=== PATIENT | male | born 1945 | race Caucasian/White ===

== ENCOUNTER 2023-02-10 21:22 | Emergency (ER) | payer OTHER, MEDICARE ==
[2023-02-10] MEDS ORDERED: Lidocaine 1% 5 ML VIAL ONE (21:28)
[2023-02-11 00:16] VITALS: BP 131/89; PULSE 98
== END 2023-02-10 22:45 ==
LOC: LL.ED 21:22
DX: S01.412A Laceration without foreign body of left cheek and temporomandibular area, initial encounter (principal); I11.0 Hypertensive heart disease with heart failure; I50.9 Heart failure, unspecified; E78.00 Pure hypercholesterolemia, unspecified; J44.9 Chronic obstructive pulmonary disease, unspecified; K21.9 Gastro-esophageal reflux disease without esophagitis; E11.9 Type 2 diabetes mellitus without complications; Z88.8 Allergy status to other drugs, medicaments and biological substances; Z88.5 Allergy status to narcotic agent
CPT/HCPCS: 12011; 99284; J3490

== ENCOUNTER 2023-05-22 13:30 | Emergency (ER) | payer OTHER, MEDICARE ==
[2023-05-22] MEDS ORDERED: Sodium Chloride 0.9% 10 ML Syringe FLUSH PRN (13:45)
[2023-05-22 13:52] LABS: BASOPHILS ABSOLUTE AUTO 0.01 K/uL (0.00-0.20); BASOPHILS PERCENT AUTO 0.1 % (0.0-2.0); EOSINOPHILS ABSOLUTE AUTO 0.01 K/uL (0.00-0.50); EOSINOPHILS PERCENT AUTO 0.1 % (0.0-5.0); HEMATOCRIT 38.4 % (39.0-49.0); HEMOGLOBIN 11.7 g/dL (13.1-16.8); LYMPHOCYTES PERCENT AUTO 4.1 % (10.0-50.0); MEAN CORPUSCULAR HEMOGLOBIN 24.7 pg (28.2-33.3); MEAN CORPUSCULAR HGB CONC 30.5 g/dL (31.7-36.0); MONOCYTES ABSOLUTE AUTO 0.48 K/uL (0.00-1.00); MONOCYTES PERCENT AUTO 4.9 % (2.0-14.0); NEUTROPHILS ABSOLUTE AUTO 8.92 K/uL (1.40-7.00); NEUTROPHILS PERCENT AUTO 90.8 % (45.0-80.0); PLATELET COUNT,PLT 198 K/uL (150-350); RED BLOOD CELL COUNT 4.74 M/uL (4.33-5.41); RED CELL DISTRIBUTION WIDTH 20.4 % (11.2-14.1); WHITE BLOOD CELL COUNT,WBC 9.8 K/uL (4.0-10.2)
[2023-05-22 14:13] LABS: ALBUMIN 2.9 g/dL (3.4-5.0); ALKALINE PHOSPHATASE 115 IU/L (46-116); ANION GAP 9.8 meq/L (7-15); ASPARTATE AMNIOTRANSFERASE,AST 49 U/L (15-37); BILIRUBIN TOTAL 0.6 mg/dL (0.2-1.0); BLOOD UREA NITROGEN,BUN 21 mg/dL (7-18); CALCIUM 8.9 mg/dL (8.5-10.1); CARBON DIOXIDE,CO2 27.2 mmol/L (21.0-32.0); CHLORIDE,CL 100 mmol/L (98-107); CREATININE 1.23 mg/dL (0.51-1.17); GLUCOSE RANDOM 264 mg/dL (70-99); POTASSIUM,K 4.5 mmol/L (3.5-5.1); PROTEIN TOTAL,TP 6.7 g/dL (6.4-8.2); SODIUM,NA 137 mmol/L (136-145)
[2023-05-22 14:22] LABS: ESTIMATED GFR 61 mL/min (>=60)
[2023-05-22] MEDS ORDERED: Bacitracin/Neomycin/Polymyxin B Oint 0.9 GM U/D Packet TOP ONE (15:10)
[2023-05-22] MEDS ORDERED: Cephalexin 500 MG Cap PO ONE (15:11)
[2023-05-22 15:17] LABS: ALANINE AMINOTRANSFERASE,ALT 46 U/L (12-78)
[2023-05-22] MEDS ORDERED: Acetaminophen 325 MG Tab PO ONE (15:44)
== END 2023-05-22 17:35 ==
LOC: LL.ED 13:30
DX: S01.02XA Laceration with foreign body of scalp, initial encounter (principal); S61.412A Laceration without foreign body of left hand, initial encounter; S61.411A Laceration without foreign body of right hand, initial encounter; T85.698A Other mechanical complication of other specified internal prosthetic devices, implants and grafts, initial encounter; I48.91 Unspecified atrial fibrillation; I25.810 Atherosclerosis of coronary artery bypass graft(s) without angina pectoris; I13.0 Hypertensive heart and chronic kidney disease with heart failure and stage 1 through stage 4 chronic kidney disease, or unspecified chronic kidney disease; E11.22 Type 2 diabetes mellitus with diabetic chronic kidney disease; N18.9 Chronic kidney disease, unspecified; I50.9 Heart failure, unspecified; E78.00 Pure hypercholesterolemia, unspecified; J44.9 Chronic obstructive pulmonary disease, unspecified; K21.9 Gastro-esophageal reflux disease without esophagitis; M06.9 Rheumatoid arthritis, unspecified; E66.9 Obesity, unspecified; Z87.891 Personal history of nicotine dependence; Z79.01 Long term (current) use of anticoagulants; Z79.82 Long term (current) use of aspirin; Z79.899 Other long term (current) drug therapy; Z79.4 Long term (current) use of insulin; Z88.8 Allergy status to other drugs, medicaments and biological substances; Z88.5 Allergy status to narcotic agent; W05.1XXA Fall from non-moving nonmotorized scooter, initial encounter
CPT/HCPCS: 12001; 36415; 70450; 71045; 72020; 72125; 72170; 73120-50; 80053; 85025; 99284; 99285; A9270-GY

== ENCOUNTER 2023-12-11 23:08 | Emergency (ER) | payer MEDICARE, OTHER ==
[2023-12-11] MEDS ORDERED: Furosemide 40 MG/4 ML VIAL IVPUSH ONE (23:26)
[2023-12-11] MEDS ORDERED: Albuterol/Ipratropium 3.0-0.5 MG/3 ML Neb Soln NEB ONE (23:27)
[2023-12-12 00:03] LABS: APPEARANCE,URINE SLIGHTLY CLOUDY; BILIRUBIN,URINE NEGATIVE (NEGATIVE); COLOR,URINE YELLOW; GLUCOSE,URINE NEGATIVE (NEGATIVE); KETONES,URINE NEGATIVE (NEGATIVE); LEUKOCYTE ESTERASE,URINE NEGATIVE (NEGATIVE); NITRITE,URINE NEGATIVE (NEGATIVE); OCCULT BLOOD,URINE MODERATE (NEGATIVE); PROTEIN,URINE NEGATIVE (NEGATIVE); UROBILINOGEN,URINE 0.2 E.U./dL (0.2-1.0)
[2023-12-12 00:11] LABS: BACTERIA,URINE RARE /HPF (NONE TO FEW); EPITHELIAL CELLS,URINE RARE /LPF; HYALINE CASTS,URINE MODERATE; MUCUS,URINE MANY /LPF (NEGATIVE); RBC,URINE 20-30 /HPF; WBC,URINE 0-5 /HPF
[2023-12-12 00:17] LABS: CORONAVIRUS COVID-19 NAA NEGATIVE (NEGATIVE); INFLUENZA A NAA NEGATIVE (NEGATIVE); INFLUENZA B NAA NEGATIVE (NEGATIVE); RESPIRATORY SYNCYTIAL VIR NAA NEGATIVE (NEGATIVE)
[2023-12-12] MEDS ORDERED: Metolazone 2.5 MG Tab PO ONE (01:23)
[2023-12-12] MEDS ORDERED: Promethazine 25 MG Tab PO ONE (01:26)
[2023-12-12 01:49] LABS: HCO3 VENOUS,POC 36 mmol/L (23-28); O2 SATURATION VENOUS,POC 61 %; PCO2 VENOUS,POC 49 mmHg (41-51); PH VENOUS,POC 7.48 (7.31-7.41); PO2 VENOUS,POC 30 mmHg
[2023-12-12] MEDS ORDERED: methylPREDNISolone Sodium Succinate 40 MG/1 ML SDV IVPUSH ONE (02:02)
[2023-12-12] MEDS ORDERED: traMADol 50 MG Tab PO ONE (02:05)
[2023-12-12] MEDS ORDERED: LORazepam 0.5 MG Tab PO ONE (02:07)
[2023-12-12] MEDS: Albuterol/Ipratropium 3.0-0.5 MG/3 ML Neb Soln NEB SCH ×2 (03:48→11:13)
[2023-12-12] MEDS ORDERED: traMADol 50 MG Tab ONE (06:01)
[2023-12-12] MEDS ORDERED: LORazepam 0.5 MG Tab ONE (06:02)
[2023-12-12] MEDS ORDERED: Sodium Chloride 0.9% 10 ML Syringe FLUSH PRN (06:48)
[2023-12-12 09:49] LABS: BASOPHILS ABSOLUTE AUTO 0.01 K/uL (0.00-0.20); BASOPHILS PERCENT AUTO 0.2 % (0.0-2.0); EOSINOPHILS ABSOLUTE AUTO 0.01 K/uL (0.00-0.50); EOSINOPHILS PERCENT AUTO 0.2 % (0.0-5.0); HEMATOCRIT 41.4 % (39.0-49.0); HEMOGLOBIN 12.7 g/dL (13.1-16.8); LYMPHOCYTES ABSOLUTE AUTO 0.43 K/uL (0.50-3.50); LYMPHOCYTES PERCENT AUTO 7.4 % (10.0-50.0); MEAN CORPUSCULAR HGB CONC 30.7 g/dL (31.7-36.0); MEAN CORPUSCULAR VOLUME 87.9 fL (84.0-98.0); MONOCYTES ABSOLUTE AUTO 0.18 K/uL (0.00-1.00); MONOCYTES PERCENT AUTO 3.1 % (2.0-14.0); NEUTROPHILS ABSOLUTE AUTO 5.22 K/uL (1.40-7.00); NEUTROPHILS PERCENT AUTO 89.1 % (45.0-80.0); PLATELET COUNT,PLT 150 K/uL (150-350); RED BLOOD CELL COUNT 4.71 M/uL (4.33-5.41); RED CELL DISTRIBUTION WIDTH 20.6 % (11.2-14.1); WHITE BLOOD CELL COUNT,WBC 5.9 K/uL (4.0-10.2)
[2023-12-12 10:11] LABS: BLOOD UREA NITROGEN,BUN 23 mg/dL (7-18); CALCIUM 9.3 mg/dL (8.5-10.1); CARBON DIOXIDE,CO2 39.8 mmol/L (21.0-32.0); CHLORIDE,CL 94 mmol/L (98-107); CREATININE 0.86 mg/dL (0.51-1.17); GLUCOSE RANDOM 133 mg/dL (70-99); POTASSIUM,K 4.5 mmol/L (3.5-5.1); SODIUM,NA 136 mmol/L (136-145)
[2023-12-12 10:12] LABS: ANION GAP 6.7 meq/L (7-15); ESTIMATED GFR 90 mL/min (>=60)
[2023-12-12] MEDS ORDERED: Bumetanide 1 MG Tab PO ONE (10:14)
[2023-12-12] MEDS ORDERED: Finasteride 5 MG Tab PO ONE (10:15)
[2023-12-12] MEDS ORDERED: Sertraline 50 MG Tab PO ONE (10:15)
[2023-12-12] MEDS ORDERED: Omeprazole 20 MG Cap.CR PO ONE (10:16)
[2023-12-12] MEDS ORDERED: Gabapentin 300 MG Cap PO ONE (10:16)
[2023-12-12] MEDS ORDERED: Apixaban 5 MG Tab PO ONE (10:16)
[2023-12-12] MEDS ORDERED: rOPINIRole 1 MG Tab PO ONE (10:17)
[2023-12-12] MEDS ORDERED: metFORMIN 500 MG Tab PO ONE (10:18)
[2023-12-12] MEDS ORDERED: Hydroxychloroquine 200 MG Tab PO ONE (10:19)
[2023-12-12] MEDS ORDERED: Losartan 25 MG Tab PO SCH (10:30)
== END 2023-12-12 12:28 ==
LOC: LL.ED 23:08
DX: J96.01 Acute respiratory failure with hypoxia (principal); J90 Pleural effusion, not elsewhere classified; I49.2 Junctional premature depolarization; I13.0 Hypertensive heart and chronic kidney disease with heart failure and stage 1 through stage 4 chronic kidney disease, or unspecified chronic kidney disease; I50.9 Heart failure, unspecified; N18.9 Chronic kidney disease, unspecified; E11.22 Type 2 diabetes mellitus with diabetic chronic kidney disease; E66.9 Obesity, unspecified; J44.9 Chronic obstructive pulmonary disease, unspecified; I25.10 Atherosclerotic heart disease of native coronary artery without angina pectoris; I48.91 Unspecified atrial fibrillation; K21.9 Gastro-esophageal reflux disease without esophagitis; M19.90 Unspecified osteoarthritis, unspecified site; Z95.0 Presence of cardiac pacemaker; Z79.4 Long term (current) use of insulin; Z79.84 Long term (current) use of oral hypoglycemic drugs; Z79.01 Long term (current) use of anticoagulants; Z79.82 Long term (current) use of aspirin; Z79.899 Other long term (current) drug therapy; Z88.8 Allergy status to other drugs, medicaments and biological substances; Z88.5 Allergy status to narcotic agent
CPT/HCPCS: 0241U; 36415; 51702; 71045; 80048; 81001; 82803; 82947; 83605; 84484; 85025; 85379; 87040; 87077; 87186; 93005; 94640; 96374; 96375; 99285-25; A9270-GY; J1940; J2920; J7620-GY